=== PATIENT | male | born 1995 | race American Indian/Alaskan Native ===

== ENCOUNTER 2017-08-11 13:02 | Emergency (ER) | payer SELFPAY ==
[2017-08-11 13:57] VITALS: BP 141/58
[2017-08-11 14:30] LABS: Basophils % (Auto) 0.1 % (0.0-1.8); Hematocrit 50.6 % (35.5-45.6); Lymphocytes # (Auto) 0.5 K/mm3 (1.2-5.4); Lymphocytes % (Auto) 4.8 % (13.4-35.0); Mean Corpuscular HGB Conc 34 % (32-34); Mean Corpuscular Hemoglobin 30 pg (28-32); Mean Corpuscular Volume 91 fl (84-94); Monocytes # (Auto) 0.7 K/mm3 (0.0-0.8); Monocytes % (Auto) 6.3 % (0.0-7.3); Platelet Count 178 K/mm3 (140-440); Red Blood Count 5.59 M/mm3 (3.65-5.03); Red Cell Distribution Width 13.5 % (13.2-15.2)
[2017-08-11 14:41] LABS: Bilirubin,Urine NEG (Negative); Blood,Urine NEG (Negative); Mucus,Urine 2+ /HPF; Urobilinogen,Urine < 2.0 mg/dL (<2.0)
[2017-08-11 14:43] LABS: Color,Urine Yellow (Yellow)
[2017-08-11 14:48] LABS: Alanine Aminotransferase 33 units/L (7-56); Albumin 4.5 g/dL (3.9-5); BUN/Creatinine Ratio 13; Blood Urea Nitrogen 12 mg/dL (9-20); Calcium 9.1 mg/dL (8.4-10.2); Hemolysis Index 15
[2017-08-11] MEDS ORDERED: ZOFRAN IV ONE (15:04)
[2017-08-11] MEDS ORDERED: MORPHINE IV ONE (15:05)
--- NOTE | 2017-08-11 15:06 | Emergency Department Report ---
Chief Complaint: Abdominal Pain Stated Complaint: RUQ PAIN/FEVER/VOMITING Time Seen by Provider: 08/11/17 15:01 - HPI History of Present Illness: Mr. Mansfield presents with RLQ pain. Elevated WBC. CT abd/pelvis ordered. - Exam Vital Signs: Vital Signs 08/11/17 13:52 Temperature 99.1 F Pulse Rate 88 Respiratory 17 Rate Blood Pressure 141/58 O2 Sat by Pulse 97 Oximetry MSE screening note: Focused history and physical exam performed. Due to findings the following was ordered: ED Medical Decision Making - Lab Data Result diagrams: 08/11/17 14:06 08/11/17 14:06 ED Disposition for MSE Condition: Stable
--- NOTE | 2017-08-11 16:03 | Cat Scan Report ---
CT ABDOMEN PELVIS WITH CONTRAST: HISTORY: Right lower quadrant abdominal pain. COMPARISON: none. TECHNIQUE: Helical CT in 1.25mm intervals following IV contrast. Sagittal and coronal reconstructions. FINDINGS: Lung bases: Normal. Liver: Normal. Biliary system: Normal. Pancreas: Normal. Spleen: Normal. Kidneys/ureters/bladder: Normal. Adrenal glands: Normal. Aorta: Normal. Intestines: Unremarkable given no oral contrast was administered. Appendix: The appendix is retrocecal in location. The appendix measures 8 mm in diameter. No appendicolith or advanced inflammatory changes are appreciated. There is minimal mucosal enhancement within the appendix. Ascites: None. Adenopathy: None. Musculoskeletal: Normal. IMPRESSION: Unremarkable CT scan of the abdomen and pelvis with contrast. The appendix measures the upper limits of normal in diameter. No convincing inflammatory changes to suggest acute appendicitis. Please correlate with the patient's clinical presentation. Oral contrast could be added if there is concern for appendicitis.
--- NOTE | 2017-08-11 16:09 | Emergency Department Report ---
ED Abdominal Pain HPI - General Chief Complaint: Abdominal Pain Stated Complaint: RUQ PAIN/FEVER/VOMITING Time Seen by Provider: 08/11/17 15:01 Source: patient Mode of arrival: Ambulatory Limitations: No Limitations - History of Present Illness Initial Comments: 21-year-old male comes in from a referral from [facility] for concerns of right lower quadrant pain with fever and nausea and vomiting. Patient with interview with metal moulder Monae. Patient admits to vomiting all night with right abdominal pain and nausea. He reports he feels better since having pain medications since being here. He reports his pains of 410 now. When he came in his pain was 8 out of 10. She has a past medical history of hepatitis but not sure what kind. He currently takes no medications has no known drug allergies. MD Complaint: abdominal pain -: days(s) (1) Location: RLQ Migration to: RLQ Severity scale (0 -10): 4 Consistency: intermittent Improves With: medication Worsens With: vomiting, movement Associated Symptoms: nausea, vomiting, fever - Related Data Allergies Allergy/AdvReac Type Severity Reaction Status Date / Time No Known Allergies Allergy Unverified 08/11/17 13:52 ED Review of Systems ROS: Stated complaint: RUQ PAIN/FEVER/VOMITING Other details as noted in HPI Constitutional: chills, fever Eyes: denies: eye pain, eye discharge, vision change ENT: denies: ear pain, throat pain Respiratory: denies: cough, shortness of breath, wheezing Cardiovascular: denies: chest pain, palpitations Endocrine: no symptoms reported Gastrointestinal: abdominal pain, nausea, vomiting Genitourinary: denies: urgency, dysuria Musculoskeletal: denies: back pain, joint swelling, arthralgia Skin: denies: rash, lesions Neurological: denies: headache, weakness, paresthesias Psychiatric: denies: anxiety, depression Hematological/Lymphatic: denies: easy bleeding, easy bruising ED Past Medical Hx - Past Medical History Previous Medical History?: No Additional medical history: hepatitis - Social History Smoking Status: Never Smoker Substance Use Type: None ED Physical Exam - General Limitations: No Limitations, Language Barrier General appearance: alert, in no apparent distress, other (nontoxic in appearance) - Head Head exam: Present: atraumatic, normocephalic - Eye Eye exam: Present: normal appearance - ENT ENT exam: Present: mucous membranes moist - Neck Neck exam: Present: normal inspection - Respiratory Respiratory exam: Present: normal lung sounds bilaterally. Absent: respiratory distress - Cardiovascular Cardiovascular Exam: Present: regular rate, normal rhythm. Absent: systolic murmur, diastolic murmur, rubs, gallop - GI/Abdominal GI/Abdominal exam: Present: soft, normal bowel sounds, other (negative psoas, negative heel tap). Absent: distended, guarding, rebound, diminished bowel sounds, organomegaly, mass - Rectal Rectal exam: Present: deferred - Extremities Exam Extremities exam: Present: normal inspection - Back Exam Back exam: Present: normal inspection, full ROM. Absent: tenderness - Neurological Exam Neurological exam: Present: alert, oriented X3 - Psychiatric Psychiatric exam: Present: normal affect, normal mood - Skin Skin exam: Present: warm, dry, intact, normal color. Absent: rash ED Course Vital Signs 08/11/17 13:52 Temperature 99.1 F Pulse Rate 88 Respiratory 17 Rate Blood Pressure 141/58 O2 Sat by Pulse 97 Oximetry ED Medical Decision Making - Lab Data Result diagrams: 08/11/17 14:06 08/11/17 14:06 - Radiology Data Radiology results: report reviewed IMPRESSION: Unremarkable CT scan of the abdomen and pelvis with contrast. The appendix measures the upper limits of normal in diameter. No convincing inflammatory changes to suggest acute appendicitis. Please correlate with the patient's clinical presentation. Oral contrast could be added if there is concern for appendicitis. Transcribed By: TTR Dictated By: AILYN WOOD JR, MD Electronically Authenticated By: AILYN WOOD JR, MD Signed Date/Time: 08/11/17 3904 - Medical Decision Making Patient has been evaluated by this provider as well as Dr. Weiss. CT with IV contrast was ordered CBC CMP and urinalysis was ordered. Review of labs showed he hasn't mild elevated white count with a left shift. Urine shows some ketones possible from dehydration and vomiting. Patient reports that pain medication is helping this pain is split up from 8 to a [address] unremarkable if concern for appendicitis may want to rescan with oral contrast. Discussed with patient that he needs to return tomorrow to have her recheck of this abdomen. Critical care attestation.: If time is entered above; I have spent that time in minutes in the direct care of this critically ill patient, excluding procedure time. ED Disposition Clinical Impression: Abdominal pain in male Disposition: DC-01 TO HOME OR SELFCARE Is pt being admited?: No Does the pt Need Aspirin: No Condition: Stable Instructions: Abdominal Pain (ED) Additional Instructions: Please follow up in the emergency room tomorrow for reevaluation of abdominal pain. Please return sooner if you have abdominal pain 10 out of 10, not able to hold anything food down, fever greater than 101.5. Forms: Work/School Release Form(ED) Print Language: WOLOF
== END 2017-08-11 16:42 | disposition home or self-care (01) ==
LOC: ED 13:02
DX: E86.0 Dehydration (principal); R10.31 Right lower quadrant pain; Z86.19 Personal history of other infectious and parasitic diseases
CPT/HCPCS: 36415; 74177; 80053; 81001; 85025; 96374; 96375; 99284; J2270; J2405; Q9967

== ENCOUNTER 2017-08-12 11:18 | Emergency (ER) | payer OTHER ==
[2017-08-12 12:02] VITALS: BP 129/65
--- NOTE | 2017-08-12 14:44 | Emergency Department Report ---
ED Medical Clearance HPI - General Chief complaint: Medical Clearance Stated complaint: RIGHT SIDE ABDOMINAL PAIN/RECHECK Time Seen by Provider: 08/12/17 14:39 Source: patient Mode of arrival: Ambulatory - History of Present Illness Initial comments: Patient is a 21-year-old female speaking male who presented with abdominal pain yesterday. Patient was worked up and was told to come back to the emergency department in 1 day for reevaluation. Patient states that he has no belly pain patient has no nausea no vomiting. Patient's CT scan on his visit yesterday was negative. Allergies/Adverse reactions: Allergies Allergy/AdvReac Type Severity Reaction Status Date / Time No Known Allergies Allergy Unverified 08/11/17 13:52 ED Review of Systems ROS: Stated complaint: RIGHT SIDE ABDOMINAL PAIN/RECHECK Other details as noted in HPI Constitutional: denies: chills, fever Eyes: denies: eye pain, eye discharge, vision change ENT: denies: ear pain, throat pain Respiratory: denies: cough, shortness of breath, wheezing Cardiovascular: denies: chest pain, palpitations Endocrine: no symptoms reported Gastrointestinal: denies: abdominal pain, nausea, diarrhea Genitourinary: denies: urgency, dysuria Musculoskeletal: denies: back pain, joint swelling, arthralgia Skin: denies: rash, lesions Neurological: denies: headache, weakness, paresthesias Psychiatric: denies: anxiety, depression Hematological/Lymphatic: denies: easy bleeding, easy bruising ED Past Medical Hx - Past Medical History Additional medical history: hepatitis - Social History Smoking Status: Never Smoker Substance Use Type: None ED Physical Exam - General Limitations: No Limitations General appearance: alert, in no apparent distress - Head Head exam: Present: atraumatic, normocephalic - Eye Eye exam: Present: normal appearance - ENT ENT exam: Present: mucous membranes moist - Neck Neck exam: Present: normal inspection - Respiratory Respiratory exam: Present: normal lung sounds bilaterally. Absent: respiratory distress - Cardiovascular Cardiovascular Exam: Present: regular rate, normal rhythm. Absent: systolic murmur, diastolic murmur, rubs, gallop - GI/Abdominal GI/Abdominal exam: Present: soft, normal bowel sounds - Rectal Rectal exam: Present: deferred - Extremities Exam Extremities exam: Present: normal inspection - Back Exam Back exam: Present: normal inspection - Neurological Exam Neurological exam: Present: alert, oriented X3 - Psychiatric Psychiatric exam: Present: normal affect, normal mood - Skin Skin exam: Present: warm, dry, intact, normal color. Absent: rash ED Course Vital Signs 08/12/17 11:58 Temperature 98.4 F Pulse Rate 81 Respiratory 16 Rate Blood Pressure 129/65 O2 Sat by Pulse 98 Oximetry ED Medical Decision Making - Medical Decision Making Chief medical diagnosis: Examination for medical clearance Patient has normal physical exam and has no complaints of any pain also patient home for follow-up for her primary care doctor. Discussed plan with patient and patient agrees additional verbal discharge instructions were given. ED Disposition Clinical Impression: Encounter for medical assessment Disposition: DC-01 TO HOME OR SELFCARE Is pt being admited?: No Does the pt Need Aspirin: No Condition: Stable Instructions: Regular Diet (ED) Referrals: HALLIE CAZARES MD [Staff Physician] - 3-5 Days Print Language: TAJIK
== END 2017-08-12 14:48 | disposition home or self-care (01) ==
LOC: ED 11:18
DX: R10.9 Unspecified abdominal pain (principal)
CPT/HCPCS: 99281